=== PATIENT | female | born 1965 | race Two or more races ===

== ENCOUNTER 2023-07-15 03:57 | Emergency (ER) | payer OTHER ==
[~2023-07-15] VITALS: Ht 160 cm; Wt 77.1 kg
[2023-07-15] MEDS ORDERED: COZAAR25 MG PO (06:11)
[2023-07-15 06:41] LABS: HEMATOCRIT 39.5 % (36.0-45.00); HEMOGLOBIN 13.3 g/dL (12.0-15.00); MEAN CELL VOLUME 80.4 fL (80.00-100.00); MEAN CORPUSCULAR HEMOGLOBIN 27.2 pg (27.00-32.0); MEAN CORPUSCULAR HGB CONC 33.8 g/dl (32.0-36.0); PLATELET COUNT 271 K/uL (150-450); RED BLOOD COUNT 4.91 M/uL (4.00-6.00); RED CELL DISTRIBUTION WIDTH 13.7 % (11.5-14.5)
== END 2023-07-15 09:17 | disposition home or self-care (01) ==
LOC: ER
PROVIDERS: General Practice
DX: R53.81 Other malaise (principal); R05.9 Cough, unspecified; R50.9 Fever, unspecified; Z20.822 Contact with and (suspected) exposure to COVID-19; I10 Essential (primary) hypertension